=== PATIENT | female | born 1955 | race African-American/Black ===

== ENCOUNTER 2020-11-23 10:57 | Outpatient (CLI) | payer OTHER ==
--- NOTE | 2020-11-23 15:43 | DEXA Report ---
PROCEDURE: Dexa Spine and/or Hip INDICATIONS: SCREENING FOR OSTEOPOROSIS TECHNIQUE: Dual energy x-ray absorptiometry (DXA) was performed on a [employer] System. Regions measur ed are the AP Spine, femoral neck, and if needed forearm. COMPARISON: None. FINDINGS: Lumbar Spine: Bone Mineral Density 1.089 g/cm/cm,T score -0.9, normal Left Hip: Bone Mineral Density 0.83 g/cm/cm,T score -1, normal Left Femoral Neck: Bone Mineral Density -871 g/cm/cm, T score -1.2, minimal osteopenia (T score greater or equal to -1.0: NORMAL) (T score from -1.1 to -2.4: OSTEOPENIA) (T score less than or equal to -2.5 to: OSTEOPOROSIS) Impression: Minimal osteopenia left femoral neck. Patients with diagnosis of osteoporosis or osteopenia should have regular bone mineral density assess ment. For those eligible for Medicare, routine testing is allowed once every 2 years. Testing frequ ency can be increased for patients who have rapidly progressing disease or for those who are receivin g medical therapy to restore bone mass. Reviewed by: Emily Bartholomew MD on 11/23/2020 3:42 PM PDT Approved by: Emily Bartholomew MD on 11/23/2020 3:42 PM PDT Station ID: [id number]
== END 2020-11-23 10:58 | disposition home or self-care (01) ==
LOC: DI 10:57
PROVIDERS: ATTEND Family Medicine
DX: Z13.820 Encounter for screening for osteoporosis (principal); M85.88 Other specified disorders of bone density and structure, other site